=== PATIENT | male | born 1985 | race Hispanic/Latino ===

== ENCOUNTER 2017-11-14 00:51 | Emergency (ER) | payer BC, OTHER ==
[2017-11-14 00:51] VITALS: BMI 23.7
[2017-11-14 01:06] VITALS: RESP 18
--- NOTE | 2017-11-14 01:37 | ED PDOC ---
Arrival/HPI - General Historian: Patient - History of Present Illness Time/Duration: < month Symptom Onset: Gradual Symptom Course: Unchanged Quality: Pressure <Jazmyn Rea - Last Filed: 11/14/17 02:12> <Kwan Potts DO - Last Filed: 11/14/17 05:53> - General Chief Complaint: Abdominal Pain Time Seen by Provider: 11/14/17 00:54 - History of Present Illness Narrative History of Present Illness (Text): 11/14/17 01:31 Patient is a 32 year old male with no significant past medical history who presents to the ED for lower abdominal fullness x 4 weeks. Patient describes it as lower abdominal pressure, constant in nature, non radiating. This has never happened to him before. Pressure is worse after eating and more pronounced when sitting. Symptoms are associated with diarrhea x 4 weeks. States that his stools are soft and loose. He has tried a probiotic with minimal improvement in symptoms. Denies any recent travel, change in diet. Denies fevers, chills, nausea, vomiting, cp, palpitations, sob, abdominal pain, urinary symptoms, constipation. (Jazmyn Rea) Past Medical History - Tetanus Immunization Tetanus Immunization: Unknown - Past Medical History Past Medical History: No Previous - Cardiac Hx Cardiac Disorders: Yes Hx Hypertension: Yes - Pulmonary Hx Respiratory Disorders: No - Neurological Hx Neurological Disorder: No - HEENT Hx HEENT Disorder: No - Renal Hx Renal Disorder: No - Endocrine/Metabolic Hx Endocrine Disorders: No - Hematological/Oncological Hx Blood Disorders: No - Integumentary Hx Dermatological Disorder: No - Musculoskeletal/Rheumatological Hx Musculoskeletal Disorders: No - Gastrointestinal Hx Gastrointestinal Disorders: Yes Hx Gastritis: Yes Hx Gastroesophageal Reflux: Yes - Genitourinary/Gynecological Hx Genitourinary Disorders: No - Psychiatric Hx Psychophysiologic Disorder: Yes Hx Anxiety: Yes Hx Substance Use: No - Surgical History Hx Tonsillectomy: Yes - Anesthesia Hx Anesthesia: Yes - Suicidal Assessment Feels Threatened In Home Enviroment: No <Jazmyn Rea - Last Filed: 11/14/17 02:12> - Provider Review Nursing Documentation Reviewed: Yes <Kwan Potts DO - Last Filed: 11/14/17 05:53> Family/Social History Family/Social History: Hypertension, Other (Hiatal hernia) Smoking Status: Current Some Days Smoker Hx Alcohol Use: Yes Frequency of alcohol use: Few days per week (5-6 drinks every other day) Hx Substance Use: No Hx Substance Use Treatment: No <Jazmyn Rea - Last Filed: 11/14/17 02:12> - Physician Review Nursing Documentation Reviewed: Yes <Kwan Potts DO - Last Filed: 11/14/17 05:53> Allergies/Home Meds <Jazmyn Rea - Last Filed: 11/14/17 02:12> <Kwan Potts DO - Last Filed: 11/14/17 05:53> Allergies/Adverse Reactions: Allergies No Known Allergies Allergy (Verified 06/05/16 00:56) Review of Systems - Physician Review All systems were reviewed & negative as marked: Yes - Review of Systems Constitutional: Normal. absent: Weight Change, Fevers Eyes: Normal. absent: Vision Changes ENT: Normal. absent: Hearing Changes Respiratory: Normal. absent: SOB, Cough, Wheezing Cardiovascular: Normal. absent: Chest Pain, Palpitations, Calf Pain Gastrointestinal: Normal, Diarrhea. absent: Abdominal Pain, Stool Changes, Constipation, Nausea, Vomiting, Hematochezia, Food Intolerance Genitourinary Male: Normal. absent: Dysuria, Hematuria Skin: Normal. absent: Rash Neurological: Normal. absent: Headache, Dizziness <Jazmyn Rea - Last Filed: 11/14/17 02:12> Physical Exam Vital Signs Reviewed: Yes Temperature: Afebrile Blood Pressure: Normal Pulse: Bradycardic Respiratory Rate: Normal Appearance: Positive for: Well-Appearing, Non-Toxic, Comfortable Pain Distress: None Mental Status: Positive for: Alert and Oriented X 3 - Systems Exam Head: Present: Atraumatic, Normocephalic Pupils: Present: PERRL Extroacular Muscles: Present: EOMI Conjunctiva: Present: Normal Mouth: Present: Moist Mucous Membranes Neck: Present: Normal Range of Motion Respiratory/Chest: Present: Clear to Auscultation, Good Air Exchange. No: Respiratory Distress, Accessory Muscle Use Cardiovascular: Present: Regular Rate and Rhythm, Normal S1, S2 Abdomen: Present: Tenderness (Mild RLQ tenderness to palpation ) Upper Extremity: Present: Normal Inspection, Normal ROM, NORMAL PULSES Lower Extremity: Present: Normal Inspection, NORMAL PULSES. No: CALF TENDERNESS Neurological: Present: CN II-XII Intact Skin: Present: Warm, Dry, Normal Color Psychiatric: Present: Alert, Oriented x 3 <Jazmyn Rea - Last Filed: 11/14/17 02:12> Vital Signs Temp Pulse Resp BP Pulse Ox 11/14/17 02:00 98.6 F 67 18 133/76 96 11/14/17 01:03 98.4 F 55 L 18 130/85 99 Medical Decision Making - RAD Interpretation Seamer Panty Hose: ED Physician <Jazmyn Rea - Last Filed: 11/14/17 02:12> <Kwan Potts DO - Last Filed: 11/14/17 05:53> ED Course and Treatment: 11/14/17 01:42 Patient is a 32 year old male with no significant past medical history who presents with lower abdominal fullness/pressure. Abdominal X ray ordered. 11/14/17 02:11 Patient to be discharged home with instructions to follow up with PCP. (Jazmyn Rea) Patient Seen With Resident: In agreement with resident note which contains more details about the patient. Patient was seen and evaluated with resident. Came up with plan and treatment together. 32 year old male presents complaining of lower abdominal fulness associated with diarrhea for the past 4 weeks. Plan: -- Abd 2 views x-ray (Kwan Potts DO) - RAD Interpretation Narrative RAD Interpretations (Text): 11/14/17 01:56 Abdominal xray: moderate amount of stool, no perforation or obstruction appreciated (Jazmyn Rea) Radiology Orders: 11/14/17 01:29 ABD 2 VIEWS (FLAT/UP OR DECUB) [RAD] Stat <Jazmyn Rea - Last Filed: 11/14/17 02:12> - PA / BIOPROCESS DEVELOPMENT ENGINEER / Resident Statement MRIIAM has reviewed & agrees with the documentation as recorded. / has examined the patient and agrees with the treatment plan. - Scribe Statement The provider has reviewed the documentation as recorded by the Scribe <Kwan Potts DO - Last Filed: 11/14/17 05:53> - Scribe Statement Mili Walker Provider Scribe Attestation: All medical record entries made by the Scribe were at my direction and personally dictated by me. I have reviewed the chart and agree that the record accurately reflects my personal performance of the history, physical exam, medical decision making, and the department course for this patient. I have also personally directed, reviewed, and agree with the discharge instructions and disposition. (Kwan Potts DO) Disposition/Present on Arrival - Present on Arrival Any Indicators Present on Arrival: No History of DVT/PE: No History of Uncontrolled Diabetes: No Urinary Catheter: No History of Decub. Ulcer: No History Surgical Site Infection Following: None - Disposition Have Diagnosis and Disposition been Completed?: Yes Disposition Time: 02:11 Patient Plan: Discharge <Jazmyn Rea - Last Filed: 11/14/17 02:12> - Disposition Disposition Time: 01:50 <Kwan Potts DO - Last Filed: 11/14/17 05:53> - Disposition Diagnosis: Peptic gastritis Disposition: HOME/ ROUTINE Condition: GOOD Discharge Instructions (ExitCare): Gastritis (DC) Additional Instructions: TANYA OQUENDO, thank you for letting us take care of you today. The emergency medical care you received today was directed at your acute symptoms. If you were prescribed any medication, please fill it and take as directed. It may take several days for your symptoms to resolve. Return to the Emergency Department if your symptoms worsen, do not improve, or if you have any other problems. Please contact your doctor or call one of the physicians/clinics you have been referred to that are listed on the Patient Visit Information form that is included in your discharge packet. Bring any paperwork you were given at discharge with you along with any medications you are taking to your follow up visit. Our treatment cannot replace ongoing medical care by a primary care provider outside of the emergency department. Thank you for allowing the [facility] team to be part of your care today. Follow up with your primary care doctor or our clinic in 3-4 days for re- evaluation and further management. Prescriptions: Ranitidine HCl [Zantac] 150 mg PO BID #20 tablet Referrals: [facility] [Outside] - Follow up with primary [facility] Henriquez, [Non-Staff] - Follow up with primary Meron Carroll MD [Staff Provider] - Follow up with primary Forms: [employer] (Dutch)
[2017-11-14 02:31] VITALS: BP 133/76; PULSE 67; TEMP 98.6; O2SAT 96
--- NOTE | 2017-11-14 09:05 | RAD ---
Date of service: 11/14/2017 HISTORY: abdominal pain COMPARISON: No prior. FINDINGS: BOWEL: Normal. No obstruction. No free air. Moderate constipation BONES: Normal. OTHER FINDINGS: None. IMPRESSION: Moderate constipation
== END 2017-11-14 02:17 | disposition home or self-care (01) ==
LOC: ED 00:51
DX: K29.70 Gastritis, unspecified, without bleeding (principal)